=== PATIENT | male | born 1970 | race Caucasian/White ===

== ENCOUNTER 2017-09-14 08:00 | Outpatient (CLI) | payer OTHER ==
[2017-09-14 13:06] LABS: THYROID STIMULATING HORMONE 0.64 uIU/mL (0.34-5.60)
== END 2017-09-14 08:01 | disposition home or self-care (01) ==
LOC: LAB.WCP 08:00
PROVIDERS: ATTEND Family Medicine
DX: R63.5 Abnormal weight gain (principal); R53.83 Other fatigue
CPT/HCPCS: 36415; 84439; 84443; 84481; 86376

== ENCOUNTER 2017-09-27 13:00 | Outpatient (CLI) | payer OTHER ==
--- NOTE | 2017-09-28 16:11 | Ultrasound Report ---
THYROID ULTRASOUND: 09/27/2017 HISTORY: Abnormal thyroid function tests. TECHNIQUE: Real-time scanning by the hop sorter with saved static images reviewed. FINDINGS RIGHT LOBE: 4.0 x 1.5 x 1.6 cm, normal echotexture. LEFT LOBE: 4.2 x 1.2 x 1.6 cm. Normal echotexture. THYROID ISTHMUS: 0.5 cm, normal echotexture. No regional adenopathy. IMPRESSION: NORMAL THYROID ULTRASOUND. JOB #: [id number] EXT JOB #:[id number]
== END 2017-09-27 13:01 | disposition home or self-care (01) ==
LOC: DI 13:00
PROVIDERS: ATTEND Family Medicine
DX: R94.6 Abnormal results of thyroid function studies (principal)
CPT/HCPCS: 76536

== ENCOUNTER 2018-10-30 10:46 | Day surgery (SDC) | payer OTHER ==
[2018-10-30] MEDS ORDERED: LACTATED RINGERS 1,000 ML IV ONE (11:06)
[2018-10-30] MEDS ORDERED: LIDO GARGLE 30 ML BOTTLE ONE (11:29)
[2018-10-30] MEDS ORDERED: fentaNYL 100 MCG/2 ML VIAL IVP ONE (11:44)
[2018-10-30] MEDS ORDERED: MIDAZOLAM 2 MG/2 ML VIAL IVP ONE (11:44)
[2018-10-30 13:17] VITALS: BP 112/81
== END 2018-10-30 10:47 | disposition home or self-care (01) ==
LOC: SDS 10:46
PROVIDERS: ATTEND Surgery
PROC: 0DJ08ZZ Inspection of Upper Intestinal Tract, Via Natural or Artificial Opening Endoscopic (ICD-10-PCS; principal; 2018-10-30 12:00)
DX: K30 Functional dyspepsia (principal); R13.10 Dysphagia, unspecified; J45.909 Unspecified asthma, uncomplicated; E66.9 Obesity, unspecified; Z68.33 Body mass index [BMI] 33.0-33.9, adult
CPT/HCPCS: 43235; A9270; J7120

== ENCOUNTER 2021-03-06 08:02 | Day surgery (SDC) | payer OTHER ==
[~2021-03-06 08:02] MED LIST: LACTATED RINGERS 1,000 ML IV ONE
[2021-03-06] MEDS ORDERED: MIDAZOLAM 2 MG/2 ML VIAL ONE ×2 (09:27→09:58)
[2021-03-06] MEDS ORDERED: fentaNYL 250 MCG/5 ML VIAL ONE (09:27)
--- NOTE | 2021-03-06 09:40 | HISTORY & PHYSICAL EXAMINATION ---
Chief Complaint - Chief Complaint Chief Complaint: Here for colon cancer screening History of Present Illness - History Obtained From Records Reviewed: yes History obtained from: pt Exam Limitations: none - History of Present Illness HPI Comment/Other: Here for routine colon cancer screening. History - Past Medical History Cardiovascular: reports: None Respiratory: reports: Asthma Endocrine/Autoimmune: reports: None GI: reports: GERD, Other : reports: None HEENT: reports: None Psych: reports: None Musculoskeletal: reports: Other Derm: reports: None MRSA Hx?: No - Past Surgical History General: reports: Cholecystectomy Ortho: reports: Arthroscopic surgery, Other Meds/Allgy - Home Medications Home Medications: Ambulatory Orders Medication Instructions Recorded Confirmed Cyanocobalamin (Vitamin B-12) 1,000 mcg PO 10/27/18 [Vitamin B-12] Glucosamine/D3/Boswellia Radha 1 10/27/18 [Glucosamine Complex-Vit D3 Cpt] Krill/Dunnell-3/Dha/Epa/Lipids 1 each PO 10/27/18 [Krill Oil 350 mg Softgel] Multivitamin [Multivitamins] 1 each PO 10/27/18 Ubidecarenone [Co Q-10] 30 mg PO 10/27/18 - Allergies Allergies/Adverse Reactions: Allergies Allergy/AdvReac Type Severity Reaction Status Date / Time No Known Drug Allergies Allergy Verified 10/27/18 14:08 Review of Systems - Other Findings Other Findings: 10 pt ros above otherwise unremarkable Exam - Vital Signs Reviewed Vital Signs: Yes Vital Signs: Vital Signs x48h Temp Pulse Resp BP Pulse Ox 03/06/21 08:07 36.1 C L 63 14 132/90 H 98 - Physical Exam General Appearance: positive: No acute distress, Alert Eyes Bilateral: positive: PERRL, EOMI ENT: positive: No signs of dehydration Neck: positive: No JVD Respiratory: positive: Breath sounds nml Cardiovascular: positive: Regular rate & rhythm Abdomen: positive: Non-tender, No distention Neurologic/Psychiatric: positive: Oriented x3 Conclusion/Plan - Problem List (1) Colon cancer screening Conclusion/Plan: plan colonoscopy. parq held and consent obtained
[2021-03-06] MEDS ORDERED: LACTATED RINGERS 700 ML IV ONE (10:19)
[2021-03-06 10:53] VITALS: BP 104/63
== END 2021-03-06 08:03 | disposition home or self-care (01) ==
LOC: SDS 08:02
PROVIDERS: ATTEND Surgery
PROC: 0DBN8ZX Excision of Sigmoid Colon, Via Natural or Artificial Opening Endoscopic, Diagnostic (ICD-10-PCS; principal; 2021-03-06 09:30)
DX: Z12.11 Encounter for screening for malignant neoplasm of colon (principal)
CPT/HCPCS: 45380; J3010; J7120

== ENCOUNTER 2022-10-27 10:50 | Outpatient (CLI) | payer OTHER ==
--- NOTE | 2022-10-27 21:02 | XRAY Report ---
PROCEDURE: Femur 2V RT INDICATIONS: PAIN IN RIGHT LOW LIMB TECHNIQUE: 2 views of the femur were acquired. COMPARISON: None. FINDINGS: Bones: No fractures or dislocations. No suspicious bony lesions. Soft tissues: No suspicious soft tissue calcifications or masses. IMPRESSION: No visualized acute fracture or dislocation. However, occult injury cannot be excluded. Recommend rome rt interval imaging follow-up in 7-10 days as clinically indicated for additional evaluation. Reviewed by: Greer Figueredo MD on 10/27/2022 9:01 PM [facility] Approved by: Greer Figueredo MD on 10/27/2022 9:01 PM [facility] Station ID: [id number]
== END 2022-10-27 10:51 | disposition home or self-care (01) ==
LOC: DI 10:50
PROVIDERS: ATTEND Physician Assistant
DX: M79.604 Pain in right leg (principal)

== ENCOUNTER 2023-06-09 10:06 | Outpatient (CLI) | payer OTHER ==
--- NOTE | 2023-06-09 14:08 | XRAY Report ---
PROCEDURE: Knee 4 View LT INDICATIONS: PAIN IN LEFT KNEE TECHNIQUE: 4 views of the left knee(s) were acquired. COMPARISON: None. FINDINGS: Bones: No fractures or dislocations. No suspicious bony lesions. Tricompartmental degenerative ch anges with medial joint space narrowing. Soft tissues: No knee joint effusion. No suspicious soft tissue calcifications or masses. IMPRESSION: 1. Tricompartmental degenerative changes consistent with osteoarthritis with medial joint space narro wing. 2. No acute abnormality. Reviewed by: Bry Edwards on 06/09/2023 2:07 PM PDT Approved by: Bry Edwards on 06/09/2023 2:07 PM PDT Station ID: [id number]
== END 2023-06-09 10:07 | disposition home or self-care (01) ==
LOC: DI 10:06
PROVIDERS: ATTEND Registered Nurse
DX: M17.12 Unilateral primary osteoarthritis, left knee (principal)

== ENCOUNTER 2023-07-02 13:34 | Outpatient (CLI) | payer OTHER ==
--- NOTE | 2023-07-04 13:28 | MRI Report ---
PROCEDURE: KNEE WO - LT INDICATIONS: PAIN IN LEFT KNEE TECHNIQUE: Noncontrast sagittal PD fast spin echo and T2 fast spin echo with fat saturation, sagittal 3-D gradie nt sequence with fat saturation; coronal T1 spin echo and PD fast spin echo with fat saturation, and axial PD fast spin echo with fat saturation through the knee. COMPARISON: None. FINDINGS: Image quality: Excellent. Menisci: There is vertically and obliquely oriented high T2 signal intensity within the inner, middle , and peripheral thirds of the medial meniscal body and posterior horn, demonstrating superior and in ferior articular surface extension, indicating complex tearing. Lateral meniscus demonstrates a disco id configuration and is intact. Cruciate ligaments: The anterior and posterior cruciate ligaments appear intact. Medial structures: The medial collateral ligament appears intact and demonstrate mild surrounding T2 signal elevation. Visualized portions of the pes anserinus tendons appear normal. No abnormal bursa l fluid. Lateral structures: The lateral collateral ligament, long and short heads of the biceps femoris tend on appear intact. The popliteus tendon appears normal. Iliotibial band appears normal. Anterior structures: The quadriceps and patellar tendons appear intact. Patellar alignment is ed l. No femoral trochlear dysplasia or ventral trochlear prominence. No edema in the infrapatellar fa t pad. Bones and cartilage: No bone marrow contusions or fractures. There is mild subchondral degenerative marrow edema within the mid/posterior weightbearing aspects of the medial femoral condyle and medial tibial plateau. Severe articular cartilage loss diffusely overlies the weightbearing aspects of the m edial femoral condyle and medial tibial plateau. Joint space: There is a small knee joint effusion and a small Steel's cyst. Normal appearing synovi al plicae are incidentally noted. IMPRESSION: 1. Complex tearing of the medial meniscus. 2. Discoid lateral meniscus without tear. 3. Medial collateral ligament strain. 4. Knee joint effusion and Steel's cyst. Reviewed by: Al Hernandez MD on 07/04/2023 1:27 PM PDT Approved by: Al Hernandez MD on 07/04/2023 1:27 PM PDT Station ID: [id number]
== END 2023-07-02 13:35 | disposition home or self-care (01) ==
LOC: DI 13:34
PROVIDERS: ATTEND Registered Nurse
DX: S83.232A Complex tear of medial meniscus, current injury, left knee, initial encounter (principal); S83.412A Sprain of medial collateral ligament of left knee, initial encounter; M25.462 Effusion, left knee; M71.22 Synovial cyst of popliteal space [Baker], left knee

== ENCOUNTER 2023-09-06 07:32 | Outpatient (CLI) | payer OTHER ==
[2023-09-06 12:18] LABS: ALBUMIN 4.5 g/dL (3.2-5.5); ALBUMIN/GLOBULIN RATIO 1.5 (1.0-2.2); ALKALINE PHOSPHATASE 58 IU/L (42-121); ALT ALANINE AMINOTRANSFERASE 29 IU/L (10-60); AST ASPARTATE AMINOTRANSFERASE 28 IU/L (10-42); BILIRUBIN,TOTAL 0.6 mg/dL (0.2-1.0); BUN - BLOOD UREA NITROGEN 12 mg/dL (6-20); CALCIUM 9.6 mg/dL (8.5-10.3); CARBON DIOXIDE - CO2 28 mmol/L (21-32); CHLORIDE 101 mmol/L (101-111); CHOL/HDL RATIO 2.4 (<5.0); CHOLESTEROL 104 mg/dL; CREATININE 0.9 mg/dL (0.6-1.3); GFR - MDRD 88 (>89); GLUCOSE 83 mg/dL (74-104); HDL CHOLESTEROL 43 mg/dL; LDL CHOLESTEROL,CALCULATED 47 mg/dL; LDL/HDL RATIO 1.1 (<3.6); POTASSIUM 4.2 mmol/L (3.5-4.5); SODIUM 137 mmol/L (135-145); TOTAL PROTEIN 7.5 g/dL (6.4-8.9); TRIGLYCERIDES 72 mg/dL (48-352); VLDL CHOLESTEROL 14 mg/dL
== END 2023-09-06 07:33 | disposition home or self-care (01) ==
LOC: LAB.N 07:32
PROVIDERS: ATTEND Internal Medicine
DX: E78.5 Hyperlipidemia, unspecified (principal)
CPT/HCPCS: 36415; 80053; 80061; 83721